=== PATIENT | male | born 1985 | race Caucasian/White ===

== ENCOUNTER 2016-11-27 05:36 | Day surgery (SDC) | payer OTHER ==
[~2016-11-27] VITALS: Ht 177.8 cm; Wt 96.0 kg
[~2016-11-27 05:36] MED LIST: Lactated Ringer's 1,000 ML IV SCH; ONDA4TAB6 PO; OXYC1TAB24 PO
[2016-11-27] MEDS ORDERED: CeFAZolin Inj 2 GM in IV Premix 1 EACH IV SCH (06:00)
[2016-11-27 06:53] VITALS: BP 135/82; PULSE 68; RESP 16; O2SAT 97
[2016-11-27] MEDS ORDERED: Lactated Ringer's 1,000 ML IV SCH (07:28)
[2016-11-27] MEDS ORDERED: Lactated Ringer's 500 ML IV PRN (07:28)
[2016-11-27] MEDS ORDERED: Atropine 0.4 mg/mL Inj IVPUSH PRN (07:30)
[2016-11-27] MEDS ORDERED: EPHEDrine Sulfate 50 mg/mL Inj IVPUSH PRN (07:30)
[2016-11-27] MEDS ORDERED: Phenylephrine 10,000 mCg/mL Inj IVPUSH PRN (07:30)
[2016-11-27] MEDS ORDERED: Labetalol 5 mg/mL 4 mL Inj IV PRN (07:30)
[2016-11-27] MEDS ORDERED: fentaNYL-PF 50 mCg/mL 2 mL Inj IVPUSH PRN (07:30)
[2016-11-27] MEDS ORDERED: HYDROmorphone 1 mg/mL Inj IVPUSH PRN (07:30)
[2016-11-27] MEDS ORDERED: MetoCLOpramide 5 mg/mL 2 mL Inj IVPUSH PRN (07:30)
[2016-11-27] MEDS ORDERED: Ondansetron 2 mg/mL 2 mL Inj IVPUSH PRN (07:30)
--- NOTE | 2016-11-27 07:31 | PCM.HPANE ---
Patient Data Surgeon Admitting Provider: Attending Provider:Fawad Turner MD Primary Care Physician:Jesus Other Provider:Jessica Gibbons Anesthesia Reason for Visit Left Kidney Stone Ht/WT & BMI Height (Feet): 5 Height (Inches): 10 Weight (Kilograms): 96 Body Mass Index 30.00 Allergies Coded Allergies: No Known Allergies (Unverified , 11/26/16) Past Anesthesia History Anesthesia History: Denies:: Abnormal Airway, Anesthesia Reactions, Difficult Intubation, Fam Anesthesia Reaction Diabetes History Hx Diabetes?: No MRSA MRSA: No Medications Hypertension Medication: No Home Meds Incl Beta Pennie: No Reported Medications Ondansetron (Zofran)4 Mg Tablet4 Mg PO Q6H PRN For Nausea 11/26/16 oxyCODONE-Acetaminophen 5-325 mg 1 Each Tablet1 Tab PO Q6H PRN For Pain Ref 0 11/26/16 History History of ENT Problems?: No HEENT History: Denies:: Abnormal Airway Cataracts Difficult Intubation Dysphagia Glaucoma Hearing Problem Sinus Problem TMJ Hx of Heart Problems?: No Cardiovascular History: Denies:: AICD Abdominal Aortic Aneurism Atrial Fibrillation Chest Pain Congestive Heart Failure Coronary Artery Disease Edema Heart Murmur Hypertension Irregular Heartbeat Pacemaker Peripheral Vascular Hx of Respiratory Problem?: No Respiratory History: Denies:: Asthma COPD Emphysema Oxygen Administration Pneumonia Tuberculosis Use of C-PAP Machine Use of Inhalers / NEBS Hx Neurologic Problems?: No Neurological History: Denies:: Alzheimer's Disease CVA Dementia Dizziness Headaches Multiple Sclerosis Parkinson's Disease Seizures TIA Hx of GI Problems?: No Gastrointestinal History: Denies:: Gall Bladder Disease Gastroesphageal Reflux Gastrointestinal Bleeding Heartburn Hepatitis Hiatal Hernia Liver Disease Hx of Problems?: Yes Genitourinary History: Positive for:: Kidney Stones (left kidney stone current admission problem) Other Pertinent History: hx of stones - passes spontaneously Male Hx: Denies:: Prostate Problems Skin History: Denies:: History Skin Disorders? Pressure Ulcers Hx Musculoskeletal Problems?: No Musculoskeletal History: Denies:: Back Injury Fibromyalgia Joint Replacement Musculoskeletal Trauma Myasthenia Gravis Osteoarthritis Hx of Psycho/Social Problems?: No Psycho Social History: Denies:: Anxiety Hx Depression Hx Surgeries?: Yes (oral surgery) Hx Any Other Health Problems?: Yes Other History: Denies:: Cancer Thyroid Disease History Blood Transfusions: Positive for:: Accept Blood Products? Denies:: Blood Transfusions Hx Diabetes: No Hx Alcohol Use: YesAlcoholic Drinks Per Day: 2 drinks monthlyHx Substance Use : NoHave You Smoked inLast 12 mo: No Stop/Bang S-Snoring: Do You Snore Loudly: No T-Tired: feel tired, fatigued: No O-Obsered: Observed not breath: No P-Blood Pressure: treated: No B- Body Mass Index > 35 kg/m2: No A- Age over 50: No N- Neck Large Circumference: No G- Gender Male: Yes ANDRES Total Score: 1 Risk Assessment Category Category 1A: Patient has history of documented sleep apnea, and HAS NOT received any narcotic, sedative or anesthesia administration during this stay. Category 1B: Patient has history of documented sleep apnea, and HAS received any narcotic , sedative or anesthesia administration during this stay Category 2: Patient has SUSPECTED Obstructive Sleep Apnea, and HAS received any narcotic , sedative or anesthesia administration during this stay. Category 3: Patient has SUSPECTED Obstructive Sleep Apnea and HAS NOT received narcotic, sedative or anesthesia administration during this stay. Category 4: Outpatient in Procedural Areas with known sleep apnea or who screen positive for High Risk via the STOP/BANG questionnaire. Exam Exam Vital Signs Vital Signs Date Time Temp Pulse Resp B/P Pulse Ox O2 Delivery O2 Flow Rate FiO2 11/27/16 06:53 36.5 68 16 135/82 97 Room Air General Appearance: Alert, Oriented X3 HEENT/AIRWAY: MP 2, Neck Movement (FROM) Lungs: Clear to Auscultation, Clear to Percussion Heart: Exam Unremarkable, Regular Rate/Rhythm Plan Impression Patient chart reviewed, patient interviewed and anesthestic plan with risks, benefits, and alternatives discussed, and informed consent obtained. NPO Status: SIP OF WATER THIS AM ASA Physical Status: ASA2 Mod Systemic Disease Anesthetic Plan: GA Bene/Risks/Altern/Consents: Yes HP Complete Prior to Induction: Yes Abdelrahman Ramos MD Nov 27, 2016 07:07
--- NOTE | 2016-11-27 08:03 | PCM.PNSURG ---
Subjective Date of Service: Nov 27, 2016 Date of Service: Nov 27, 2016 Assessment & Plan Impression Patient took Ibuprofen this AM. ESWL canceled. Patient will have ESWL re- scheduled. Problems: Fawad Turner MD Nov 27, 2016 08:03
--- NOTE | 2016-11-27 10:18 | DRSVH ---
PROCEDURE: X-RAY KUB ([id number]) INDICATIONS: 31 year-old male with left kidney stone. TECHNIQUE: One view of the abdomen acquired. COMPARISON: Outside Film, CT, CT ABD PELVIS WO CON, 10/29/2016, 14:13. [facility], CR, XR KUB, 10/31/2016, 12:37. FINDINGS: Surgical changes and devices: None. Bowel: Bowel gas pattern is normal. Soft tissues: 1.1 cm proximal left ureteral stone is not changed in position since October 29, 2016 C T scan. Smaller bilateral renal stones on comparison CT scan are not visible radiographically. Severa l small bilateral pelvic phleboliths are again noted. Visualized solid organ contours appear normal i n size. Bones: No suspicious bony lesions. Proximal left femur bone island is incidentally noted. IMPRESSION: 1.1 cm proximal left ureteral stone is unchanged in position since October 2016 CT scan. Dictated by: Dae Rios M.D. on 11/27/2016 at 10:13 Approved by: Dae Rios M.D. on 11/27/2016 at 10:16
== END 2016-11-27 23:59 | disposition home or self-care (01) ==
LOC: SAS 05:36
PROVIDERS: ATTEND Urology
DX: N20.0 Calculus of kidney (principal); Z53.09 Procedure and treatment not carried out because of other contraindication

== ENCOUNTER 2016-12-25 07:23 | Day surgery (SDC) | payer OTHER ==
[2016-12-25] VITALS (9 sets, daily range): BP systolic 102–132; BP diastolic 61–80; PULSE 69–91; RESP 13–20; O2SAT 91–98
[~2016-12-25] VITALS: Ht 177.8 cm; Wt 95.3 kg
[~2016-12-25 07:23] MED LIST changes: +CeFAZolin Inj 2 GM in IV Premix 1 EACH IV ONE; -Lactated Ringer's 1,000 ML IV SCH
[2016-12-25] MEDS ORDERED: Propofol 10,000 mCg/mL 20 mL Inj ONE (07:24)
[2016-12-25] MEDS ORDERED: Ondansetron 2 mg/mL 2 mL Inj ONE (07:24)
[2016-12-25] MEDS ORDERED: Lidocaine PF 1% 30 mL Inj ONE (07:24)
[2016-12-25] MEDS ORDERED: fentaNYL-PF 50 mCg/mL 2 mL Inj ONE (07:24)
[2016-12-25] MEDS ORDERED: Dexamethasone 4 mg/mL Inj ONE (07:24)
[2016-12-25] MEDS: Lactated Ringer's 1,000 ML IV SCH ×2 (08:02→09:46)
--- NOTE | 2016-12-25 09:07 | DRSVH ---
PROCEDURE: X-RAY KUB ([id number]) INDICATIONS: LEFT KIDNEY STONE TECHNIQUE: One view of the abdomen acquired. COMPARISON: [facility], CR, XR KUB, 11/27/2016, 6:34. [facility], CR, XR KU B, 10/31/2016, 12:37. FINDINGS: Surgical changes and devices: None. Bowel: Bowel gas pattern is normal. Soft tissues: No change in 11 mm diameter left ureteral calculus. Visualized solid organ contours ap pear normal in size. Bones: No suspicious bony lesions. IMPRESSION: 1. No change in left proximal ureteral calculus. Previously seen smaller renal calculi are not seen b y plain film. Dictated by: Conchis Bergeron M.D. on 12/25/2016 at 9:04 Approved by: Conchis Bergeron M.D. on 12/25/2016 at 9:06
[2016-12-25] MEDS ORDERED: Lactated Ringer's 500 ML IV PRN (09:29)
[2016-12-25] MEDS ORDERED: Lactated Ringer's 1,000 ML IV SCH (09:29)
--- NOTE | 2016-12-25 09:29 | PCM.HPANE ---
Patient Data Date of Service: Dec 25, 2016 Surgeon Admitting Provider: Attending Provider:Mayte Fitzpatrick MD Primary Care Physician:Jesus Other Provider:Jessica Gibbons Anesthesia Reason for Visit Left Kidney Stone Ht/WT & BMI Height (Feet): 5 Height (Inches): 10 Weight (Kilograms): 95.3 Body Mass Index 30.00 Allergies Coded Allergies: No Known Allergies (Unverified , 11/26/16) Past Anesthesia History Anesthesia History: Denies:: Abnormal Airway, Anesthesia Reactions, Difficult Intubation, Fam Anesthesia Reaction Diabetes History Hx Diabetes?: No MRSA MRSA: No Medications Home Meds Incl Beta Pennie: No Reported Medications Ondansetron (Zofran)4 Mg Tablet4 Mg PO Q6H PRN For Nausea 11/26/16 oxyCODONE-Acetaminophen 5-325 mg 1 Each Tablet1 Tab PO Q6H PRN For Pain Ref 0 11/26/16 History History of ENT Problems?: No HEENT History: Denies:: Abnormal Airway Cataracts Difficult Intubation Dysphagia Hearing Problem Sinus Problem TMJ Hx of Heart Problems?: No Cardiovascular History: Denies:: AICD Abdominal Aortic Aneurism Atrial Fibrillation Chest Pain Congestive Heart Failure Edema Heart Murmur Hypertension Irregular Heartbeat Pacemaker Hx of Respiratory Problem?: No Respiratory History: Denies:: Asthma COPD Emphysema Oxygen Administration Pneumonia Tuberculosis Use of C-PAP Machine Hx Neurologic Problems?: No Neurological History: Denies:: Alzheimer's Disease CVA Dementia Dizziness Headaches Multiple Sclerosis Parkinson's Disease Seizures Hx of GI Problems?: No Gastrointestinal History: Denies:: Gastroesphageal Reflux Gastrointestinal Bleeding Heartburn Hepatitis Hiatal Hernia Hx of Problems?: Yes Genitourinary History: Positive for:: Kidney Stones (left kidney stone current admission problem) Male Hx: Denies:: Prostate Problems Skin History: Denies:: History Skin Disorders? Pressure Ulcers Hx Musculoskeletal Problems?: No Musculoskeletal History: Denies:: Back Injury Joint Replacement Musculoskeletal Trauma Hx of Psycho/Social Problems?: No Psycho Social History: Denies:: Anxiety Hx Depression Hx Surgeries?: Yes (oral surgery) Hx Any Other Health Problems?: Yes Other History: Denies:: Cancer Thyroid Disease History Blood Transfusions: Denies:: Blood Transfusions Hx Diabetes: No Hx Alcohol Use: YesHx Substance Use: No Smoking Status: Never Smoker Have You Smoked inLast 12 mo: No Stop/Bang S-Snoring: Do You Snore Loudly: Yes T-Tired: feel tired, fatigued: No O-Obsered: Observed not breath: No P-Blood Pressure: treated: No B- Body Mass Index > 35 kg/m2: No A- Age over 50: No N- Neck Large Circumference: No G- Gender Male: Yes ANDRES Total Score: 2 ANDRES Risk Assessment: Low Risk, <3 Yes Risk Assessment Category Category 1A: Patient has history of documented sleep apnea, and HAS NOT received any narcotic, sedative or anesthesia administration during this stay. Category 1B: Patient has history of documented sleep apnea, and HAS received any narcotic , sedative or anesthesia administration during this stay Category 2: Patient has SUSPECTED Obstructive Sleep Apnea, and HAS received any narcotic , sedative or anesthesia administration during this stay. Category 3: Patient has SUSPECTED Obstructive Sleep Apnea and HAS NOT received narcotic, sedative or anesthesia administration during this stay. Category 4: Outpatient in Procedural Areas with known sleep apnea or who screen positive for High Risk via the STOP/BANG questionnaire. Exam Exam Vital Signs Vital Signs Date Time Temp Pulse Resp B/P Pulse Ox O2 Delivery O2 Flow Rate FiO2 12/25/16 08:08 36.1 71 20 117/75 96 Room Air General Appearance: Alert, Oriented X3, Cooperative, No Acute Distress HEENT/AIRWAY: MP 2 Lungs: Normal Air Movement Heart: Exam Unremarkable Meds/Labs/Diagnostics Admission Meds Current Medications Lactated Ringer's (Lr) 1,000 ml @ 120 mls/hr Q8H20M IV Last administered on t 08:02; Start 12/25/16 at 05:00; Stop 12/25/16 at 13:19 Plan Impression Patient chart reviewed, patient interviewed and anesthestic plan with risks, benefits, and alternatives discussed, and informed consent obtained. NPO Status: 12/24/16 ASA Physical Status: ASA2 Mod Systemic Disease Anesthetic Plan: GA Bene/Risks/Altern/Consents: Yes HP Complete Prior to Induction: Yes Lisandro Gil MD Dec 25, 2016 08:48
[2016-12-25] MEDS ORDERED: EPHEDrine Sulfate 50 mg/mL Inj IVPUSH PRN (09:30)
[2016-12-25] MEDS ORDERED: Atropine 0.4 mg/mL Inj IVPUSH PRN (09:30)
[2016-12-25] MEDS ORDERED: Labetalol 5 mg/mL 4 mL Inj IV PRN (09:30)
[2016-12-25] MEDS ORDERED: MetoCLOpramide 5 mg/mL 2 mL Inj IVPUSH PRN (09:30)
[2016-12-25] MEDS ORDERED: Ondansetron 2 mg/mL 2 mL Inj IVPUSH PRN (09:30)
[2016-12-25] MEDS ORDERED: HYDROmorphone 1 mg/mL Inj IVPUSH PRN (09:30)
[2016-12-25] MEDS ORDERED: fentaNYL-PF 50 mCg/mL 2 mL Inj IVPUSH PRN (09:30)
[2016-12-25] MEDS ORDERED: Dexamethasone 4 mg/mL Inj IVPUSH PRN (09:30)
[2016-12-25] MEDS ORDERED: Phenylephrine 10,000 mCg/mL Inj IVPUSH PRN (09:30)
[2016-12-25] MEDS ORDERED: HYDROcodone-APAP 5-325 mg Tablet PO PRN (10:15)
--- NOTE | 2016-12-25 10:25 | PCM.ANEP1 ---
Post Anesthesia Phase 1 PACU Phase 1 Assessment Date of Service: Dec 25, 2016 Vital Signs Vital Signs Date Time Temp Pulse Resp B/P Pulse Ox O2 Delivery O2 Flow Rate FiO2 12/25/16 08:08 36.1 71 20 117/75 96 Room Air Anesthetic Administered: GA Level of Alertness: Drowsy, not talking Pain: No Nausea or Vomiting: No Oxygen Delivery: Nasal Cannula Lungs: Normal Air Movement Lisandro Gil MD Dec 25, 2016 10:25
--- NOTE | 2016-12-25 10:54 | PCM.ANEP2 ---
Post Anesthesia Evaluation ASA/CMS Post Anesthesia Date of Service: Dec 25, 2016 VS in Patient's Normal Range?: Yes Resp Stable; Airway Patent?: Yes CV Function & Hydration Stable: Yes Mental Status Recovered?: Yes Pain control Satisfactory?: Yes N/V Control Satisfactory?: Yes Lisandro Gil MD Dec 25, 2016 10:54
--- NOTE | 2016-12-25 23:29 | OP ---
[address] [address] OPERATIVE REPORT PATIENT: SLOAN STERN : 1985 MR#: [id number] ADMIT: 12/25/2016 JOB ID: [id number] DATE OF SURGERY: 12/25/2016 PREOPERATIVE DIAGNOSIS(ES): Left ureteral stone. POSTOPERATIVE DIAGNOSIS(ES): Left ureteral stone. PROCEDURE PERFORMED: Left extracorporeal shockwave lithotripsy. SURGEON: Mayte Fitzpatrick MD. INFECTIOUS DISEASE TECHNICIAN: None. FINDINGS: Proximal left ureteral stone seen on KUB. ANESTHESIA: General. ESTIMATED BLOOD LOSS: None. DRAINS: None. SPECIMENS: None. COMPLICATIONS: None. CONDITION: Stable. INDICATION FOR THE PROCEDURE: The patient is a 31-year-old man with a left proximal ureteral stone. He wishes to undergo shockwave lithotripsy. DESCRIPTION OF PROCEDURE: After informed consent was obtained, patient was taken to the operating room. A time-out was performed identifying correct patient, surgical site, and procedure. General anesthesia was smoothly induced. He was given intravenous antibiotics prior to start of the procedure. He was placed in a supine position and positioned over the fluoroscopic device. All pressure points were identified and appropriately padded. The shockwave lithotripsy commenced and ultimately to a maximum power of 5 submitted to the full 2500 shocks. There appeared to be very good dissolution of the stone as it was not evident on fluoroscopy post procedurally. The patient appeared to tolerate the procedure without any apparent complications. The patient was then reversed from general anesthesia and taken to PACU in good and stable condition. [place]
== END 2016-12-25 23:59 | disposition home or self-care (01) ==
LOC: SAS 07:23
PROVIDERS: ATTEND Urology
DX: N20.1 Calculus of ureter (principal)